=== PATIENT | male | born 1975 | race Hispanic/Latino ===

== ENCOUNTER 2016-11-25 09:47 | Emergency (ER) | payer SELFPAY ==
[2016-11-25 09:55] VITALS: BP 106/62
[2016-11-25] MEDS ORDERED: BOOSTRIX IM ONE (11:14)
[2016-11-25] MEDS ORDERED: NACL 0.9% IR ONE (11:15)
[2016-11-25] MEDS ORDERED: TRIPLE ANTIBIOTIC TP ONE ×2 (11:15→13:50)
[2016-11-25] MEDS ORDERED: MOTRIN PO ONE (11:15)
[2016-11-25] MEDS ORDERED: XYLOCAINE 1% 20 mL INFILTRATI ONE (11:15)
--- NOTE | 2016-11-25 11:20 | Emergency Department Report ---
ED General Adult HPI - General Chief complaint: Wound/Laceration Stated complaint: LAC TO L FOREARM Time Seen by Provider: 11/25/16 11:06 Source: patient Mode of arrival: Ambulatory Limitations: No Limitations - History of Present Illness Initial comments: PT states he was at a gas station this morning when he was cutting a plastic tab off of gas can and he accidentally cut his L forearm. PT states the razor that he was using was his and it was not dirty. PT states he cleaned the blade yesterday. PT denies numbness or loss of movement to LUE. MD Complaint: laceration Onset/Timin -: hour(s) Location: left, upper extremity Severity scale (0 -10): 6 (sore) Quality: other (soreness ) Consistency: constant Improves with: other (holding pressure ) Worsens with: other (palpation ) Associated Symptoms: denies other symptoms. denies: fever/chills, nausea/ vomiting Treatments Prior to Arrival: none - Related Data Previous Rx's Medication Instructions Recorded Last Taken Type Acetaminophen/Codeine [Tylenol #3] 1 tab PO Q6H PRN #12 tab 11/25/16 Unknown Rx Cephalexin [Keflex] 500 mg PO Q6HR #40 capsule 11/25/16 Unknown Rx Ibuprofen [Motrin] 600 mg PO Q8H PRN #15 tablet 11/25/16 Unknown Rx Allergies Allergy/AdvReac Type Severity Reaction Status Date / Time No Known Allergies Allergy Unverified 04/29/14 15:18 ED Review of Systems ROS: Stated complaint: LAC TO L FOREARM Other details as noted in HPI Comment: All other systems reviewed and negative Gastrointestinal: denies: nausea, vomiting Musculoskeletal: as per HPI Skin: as per HPI Neurological: denies: numbness, paresthesias ED Past Medical Hx - Past Medical History Previous Medical History?: No - Surgical History Past Surgical History?: No - Social History Smoking Status: Current Every Day Smoker Substance Use Type: None - Medications Home Medications: Home Medications Medication Instructions Recorded Confirmed Last Taken Type Acetaminophen/Codeine [Tylenol #3] 1 tab PO Q6H PRN #12 tab 11/25/16 Unknown Rx Cephalexin [Keflex] 500 mg PO Q6HR #40 capsule 11/25/16 Unknown Rx Ibuprofen [Motrin] 600 mg PO Q8H PRN #15 tablet 11/25/16 Unknown Rx ED Physical Exam - General Limitations: No Limitations General appearance: alert, in no apparent distress - Head Head exam: Present: atraumatic, normocephalic, normal inspection - Eye Eye exam: Present: normal appearance, EOMI. Absent: conjunctival injection - ENT ENT exam: Present: normal exam, normal external ear exam - Neck Neck exam: Present: normal inspection, full ROM - Respiratory Respiratory exam: Present: normal lung sounds bilaterally. Absent: respiratory distress, chest wall tenderness, accessory muscle use - Cardiovascular Cardiovascular Exam: Present: regular rate, normal rhythm, normal heart sounds - GI/Abdominal GI/Abdominal exam: Present: soft. Absent: tenderness - Extremities Exam Extremities exam: Present: full ROM, tenderness, normal capillary refill, other (PT with 4 cm laceration ) - Expanded Upper Extremity Exam Left Elbow exam: Present: normal inspection, full ROM Forearm Wrist exam: Present: laceration (to the ant L forearm ), ecchymosis, other (tattoos ). Absent: deformity, erythema, tenderness over anatomical snuff box, pain with axial thumb loading Hand Wrist exam: Present: normal inspection, full ROM. Absent: tenderness, swelling, laceration, ecchymosis, deformity Neuro motor exam: Present: wrist extension intact, thumb opposition intact, thumb IP flexion intact, thumb adduction intact, fingers 2-5 abduction intact Vascular: Present: normal capillary refill, radial pulse - Back Exam Back exam: Present: normal inspection, full ROM - Neurological Exam Neurological exam: Present: alert, oriented X3, normal gait - Psychiatric Psychiatric exam: Present: normal affect, normal mood - Skin Skin exam: Present: warm, dry. Absent: intact ED Course Vital Signs 11/25/16 09:53 Temperature 98 F Pulse Rate 82 Respiratory 20 Rate Blood Pressure 106/62 O2 Sat by Pulse 98 Oximetry - Reevaluation(s) Reevaluation #1: 11/25/16 11:30 PT aware of plan of care. No questions at this time. Reevaluation #2: 11/25/16 13:29 PT tolerated sutures well. PT given verbal home care instructions. PT aware he will need to followup with ortho. - Laceration /Wound Repair Left Anterior Distal Arm Wound Location: upper extremity (L forearm ) Wound Length (cm): 4 Wound's Depth, Shape: superficial, linear (with proximal portion curved ), contused tissue Wound Explored: no foreign body removed Irrigated w/ Saline (ccs): 400 Betadine Prep?: Yes Anesthesia: 1% Lidocaine Volume Anesthetic (ccs): 6 Wound Debrided: minimal Wound Repaired With: sutures Suture Size/Type: 4:0, nylon Number of Sutures: 13 (must distal suture, gut) Layer Closure?: Yes Deep Layer Suture Size/Type: 4:0, gut Number Deep Layer Sutures: 2 Sterile Dressing Applied?: Yes - Pulse Oximetry Interpretation Digit-Finger Initial Pulse Oximetry Readin Actions Taken: none ED Medical Decision Making - Differential Diagnosis laceration, contusion, puncture wound Critical Care Time: No Critical care attestation.: If time is entered above; I have spent that time in minutes in the direct care of this critically ill patient, excluding procedure time. ED Disposition Clinical Impression: Laceration of left forearm Qualifiers: Encounter type: initial encounter Qualified Code(s): S51.812A - Laceration without foreign body of left forearm, initial encounter Disposition: DISCHARGED TO HOME OR SELFCARE Is pt being admited?: No Does the pt Need Aspirin: No Condition: Stable Instructions: Suture Care (ED), Laceration (ED) Additional Instructions: No driving or ETOH after Tylenol #3, take with food to decrease nausea finish all of your antibiotics. Return to ED for recheck in 2-3 days, if you can not follow up with ortho Prescriptions: Acetaminophen/Codeine [Tylenol #3] 1 tab PO Q6H PRN #12 tab PRN Reason: Pain , Severe (7-10) Cephalexin [Keflex] 500 mg PO Q6HR #40 capsule Ibuprofen [Motrin] 600 mg PO Q8H PRN #15 tablet PRN Reason: Pain Referrals: PRIMARY CARE, [Primary Care Provider] - 3-5 Days ELMA SANTIAGO MD [Staff Physician] - 3-5 Days Forms: Work/School Release Form(ED) Time of Disposition: 13:35
== END 2016-11-25 14:23 | disposition home or self-care (01) ==
LOC: ED 09:47
DX: S51.812A Laceration without foreign body of left forearm, initial encounter (principal); F17.200 Nicotine dependence, unspecified, uncomplicated; W26.8XXA Contact with other sharp object(s), not elsewhere classified, initial encounter; Y93.9 Activity, unspecified; Y99.9 Unspecified external cause status; Y92.89 Other specified places as the place of occurrence of the external cause
CPT/HCPCS: 90471; 90715; A6250